=== PATIENT | male | born 1960 | race Caucasian/White ===

== ENCOUNTER 2020-09-21 06:31 | Inpatient (IN) | payer OTHER ==
[2020-09-19 10:25] LABS: BASOPHILS % (AUTO) 1 % (0-1); EOSINOPHILS % (AUTO) 2 % (1-7); LYMPHOCYTES % (AUTO) 37 % (22-44); MEAN CORPUSCULAR HEMOGLOBIN 31.7 pg (27.5-34.5); MEAN PLATELET VOLUME 7.1 fL (7.4-10.4); MONOCYTES % (AUTO) 10 % (2-9); NEUTROPHILS % (AUTO) 50 % (42-75); PLATELET COUNT 272 x10^3/uL (130-400); RED BLOOD COUNT 4.88 x10^6/uL (4.38-5.82); RED CELL DISTRIBUTION WIDTH 13.1 % (9.4-14.8)
[2020-09-19 10:36] LABS: ALANINE AMINOTRANSFERASE 22 U/L (12-78); ALBUMIN 3.7 g/dL (3.4-5.0); CREATININE 0.96 mg/dL (0.7-1.3)
[2020-09-19 10:39] LABS: ALKALINE PHOSPHATASE 71 U/L (45-117); BILIRUBIN,TOTAL 0.4 mg/dL (0.2-1.0); TOTAL PROTEIN 6.9 g/dL (6.4-8.2)
[2020-09-19 10:46] LABS: CHLORIDE 107 mmol/L (98-107)
[2020-09-19 10:47] LABS: ANION GAP 3 mmol/L (5-15)
[~2020-09-21] VITALS: Ht 172.7 cm; Wt 74.7 kg
[~2020-09-21 06:31] MED LIST: CALCIUM PO; LATA7.5D EACHEYE; MULT-658 PO
[2020-09-21] MEDS ORDERED: FENTANYL PF 250 MCG/5ML ONE (06:42)
[2020-09-21] MEDS ORDERED: MIDAZOLAM 1 MG/ML, 2ML ONE (06:42)
[2020-09-21] MEDS ORDERED: CEFOTETAN 2 GM ONE (06:43)
[2020-09-21] MEDS ORDERED: BUPIVACAINE/PF 0.25% ONE ×2 (06:51→06:52)
[2020-09-21] MEDS ORDERED: ROCURONIUM 10MG/ML,5ML ONE ×2 (06:52→09:06)
[2020-09-21] MEDS ORDERED: NEOSTIGMINE 1 MG/ML, 10ML ONE (06:52)
[2020-09-21] MEDS ORDERED: DEXAMETHASONE 4 MG/ML, 1ML ONE (06:52)
[2020-09-21] MEDS ORDERED: PROPOFOL 10 MG/ML, 20ML ONE (06:52)
[2020-09-21] MEDS ORDERED: GLYCOPYRROLATE 0.2MG/1ML, 5ML ONE (06:52)
[2020-09-21] MEDS ORDERED: ONDANSETRON 2MG/ML, 2ML ONE (06:52)
[2020-09-21] MEDS ORDERED: EPINEPHRINE 1 MG/ML, 1ML ONE (06:55)
[2020-09-21] MEDS ORDERED: BUPIVACAINE/PF 0.5% ONE (06:55)
[2020-09-21] MEDS ORDERED: INDOCYANINE GREEN 25 MG VIAL ONE (06:55)
[2020-09-21] MEDS ORDERED: CHLORHEXIDINE 15 ML UDC ONE (07:00)
[2020-09-21] MEDS ORDERED: LACTATED RINGERS 1,000 ML IV SCH (07:00)
[2020-09-21] MEDS ORDERED: CHLORHEXIDINE 15 ML UDC PO ONE (07:00)
[2020-09-21] MEDS ORDERED: LABETALOL 5MG/ML, 20ML IV PRN (07:30)
[2020-09-21] MEDS ORDERED: HALOPERIDOL 5 MG/ML IV PRN (07:30)
[2020-09-21] MEDS ORDERED: PROMETHAZINE 25 MG/ML, 1ML IVPush PRN (07:30)
[2020-09-21] MEDS ORDERED: ACETAMINOPHEN 325 MG TABLET PO PRN (07:30)
[2020-09-21] MEDS ORDERED: morphine SULFATE 10 MG/ML, 1ML IVPush PRN (07:30)
[2020-09-21] MEDS ORDERED: MEPERIDINE/PF 25MG/0.5ML IVPush PRN (07:30)
[2020-09-21] MEDS ORDERED: SUGAMMADEX 200 MG/2 ML IVPush ONE (09:25)
[2020-09-21] MEDS ORDERED: TRAZODONE 50MG TABLET PO PRN (10:00)
[2020-09-21] MEDS ORDERED: DIPHENHYDRAMINE 50 MG/ML, 1ML IVPush PRN (10:00)
[2020-09-21] MEDS ORDERED: DIPHENHYDRAMINE 25 MG CAPSULE PO PRN (10:00)
[2020-09-21] MEDS ORDERED: HALOPERIDOL 5 MG/ML IVPush PRN (10:00)
[2020-09-21] MEDS ORDERED: LORazepam 0.5MG TABLET PO PRN (10:00)
[2020-09-21] MEDS ORDERED: D5%-0.45NACL+KCL 20MEQ 1,000 ML IV SCH (10:00)
[2020-09-21] MEDS ORDERED: HYDROmorphone 1 MG/ML, 1ML INJ IVPush PRN (10:00)
[2020-09-21] MEDS ORDERED: LORazepam 2 MG/ML, 1ML IVPush PRN (10:00)
[2020-09-21] MEDS ORDERED: ONDANSETRON 2MG/ML, 2ML IVPush PRN (10:00)
[2020-09-21] MEDS ORDERED: DEXAMETHASONE 4 MG/ML, 1ML IVPush PRN (10:00)
[2020-09-21] MEDS ORDERED: CALCIUM CARBONATE 500 MG TAB.CHEW PO PRN (10:00)
[2020-09-21] MEDS: FENTANYL PF 100 MCG/2ML IV PRN ×2 (10:15→10:20)
[2020-09-21] MEDS ORDERED: FENTANYL PF 100 MCG/2ML ONE (10:17)
[2020-09-21] MEDS ORDERED: HYDROmorphone 1 MG/ML, 1ML INJ ONE ×2 (10:28→11:02)
[2020-09-21] MEDS: HYDROmorphone 1 MG/ML, 1ML INJ IVPush PRN ×4 (10:40→11:40)
[2020-09-21] MEDS ORDERED: LORazepam 2 MG/ML, 1ML ONE (10:44)
[2020-09-21] MEDS: hydrALAzine 20 MG/ML, 1ML IV PRN ×2 (11:00→11:40)
[2020-09-21] MEDS ORDERED: hydrALAzine 20 MG/ML, 1ML ONE (11:02)
[2020-09-21] MEDS: ACETAMINOPHEN 500 MG TABLET PO SCH ×3 (11:25→22:15)
[2020-09-21] MEDS ORDERED: PROMETHAZINE 25 MG/ML, 1ML ONE (11:38)
[2020-09-21] MEDS: GABAPENTIN 300 MG CAPSULE PO SCH ×2 (14:34→22:15)
[2020-09-21] MEDS: ACETAMINOPHEN 100 ML IVPB SCH ×2 (16:55→22:15)
[2020-09-21 17:00] VITALS: BP 159/83
[2020-09-21] MEDS ORDERED: LABETALOL 5MG/ML, 20ML IVPush PRN (17:00)
[2020-09-21 19:18] VITALS: BP 149/88
[2020-09-21] MEDS: OXYcodone IR 5MG TABLET PO PRN (19:49)
[2020-09-22 00:07] VITALS: BP 147/88
[2020-09-22 03:09] VITALS: BP 134/75
[2020-09-22 03:13] LABS: MEAN CORPUSCULAR HEMOGLOBIN 30.9 pg (27.5-34.5); MEAN CORPUSCULAR HGB CONC 34.8 g/dL (33.2-36.2); MEAN PLATELET VOLUME 7.2 fL (7.4-10.4); PLATELET COUNT 320 x10^3/uL (130-400); RED CELL DISTRIBUTION WIDTH 13.1 % (9.4-14.8)
[2020-09-22 03:26] LABS: ALBUMIN 3.4 g/dL (3.4-5.0); ANION GAP 3 mmol/L (5-15); CHLORIDE 103 mmol/L (98-107)
[2020-09-22 03:53] LABS: <RBC MORPHOLOGY> NORMAL; LYMPH#(MANUAL) 1.39 x10^3/uL (1-3.4); LYMPHS% (MANUAL) 8 % (22-44); MONOS#(MANUAL) 1.57 x10^3/uL (0.3-2.7); MONOS% (MANUAL) 9 % (2-9); REACTIVE LYMPHS # (MANUAL) 1.04 x10^3/uL (0-0); REACTIVE LYMPHS % (MANUAL) 6 % (0-0); SEGS% (MANUAL) 77 % (42-75)
[2020-09-22 03:54] LABS: <PLATELET ESTIMATE> ADEQUATE; <PLT MORPHOLOGY> NORMAL PLT MORPH
[2020-09-22] MEDS: ACETAMINOPHEN 100 ML IVPB SCH ×2 (04:12→09:28)
[2020-09-22] MEDS: OXYcodone IR 5MG TABLET PO PRN ×2 (04:13→20:38)
[2020-09-22] MEDS: ACETAMINOPHEN 500 MG TABLET PO SCH ×4 (04:13→22:16)
[2020-09-22] MEDS: MULTIVITAMIN 1 TABLET PO SCH (07:35)
[2020-09-22] MEDS: GABAPENTIN 300 MG CAPSULE PO SCH ×2 (07:35→20:39)
[2020-09-22] MEDS: TEMPLATE NON-FORMULARY MED. (Latanoprost/Pf (Latanoprost 0.005% Eye Drop) 1 DROP) EACHEYE SCH (07:36)
[2020-09-22 08:32] VITALS: BP 143/86
[2020-09-22] MEDS: ENOXAPARIN 40 MG/0.4 ML SQ SCH (09:27)
[2020-09-22 14:35] VITALS: BP 146/93
[2020-09-22 20:14] VITALS: BP 132/85
[2020-09-23 01:45] VITALS: BP 105/70
[2020-09-23 03:27] LABS: BASOPHILS % (AUTO) 0 % (0-1); EOSINOPHILS % (AUTO) 1 % (1-7); LYMPHOCYTES % (AUTO) 23 % (22-44); MEAN CORPUSCULAR HEMOGLOBIN 31.2 pg (27.5-34.5); MEAN CORPUSCULAR HGB CONC 35.2 g/dL (33.2-36.2); MEAN PLATELET VOLUME 7.3 fL (7.4-10.4); MONOCYTES % (AUTO) 10 % (2-9); NEUTROPHILS % (AUTO) 65 % (42-75); PLATELET COUNT 242 x10^3/uL (130-400); RED BLOOD COUNT 4.56 x10^6/uL (4.38-5.82)
[2020-09-23 03:35] LABS: ALBUMIN 3.1 g/dL (3.4-5.0); ANION GAP 4 mmol/L (5-15); CALCIUM 8.9 mg/dL (8.5-10.1); CHLORIDE 106 mmol/L (98-107); CREATININE 0.95 mg/dL (0.7-1.3)
[2020-09-23] MEDS: ACETAMINOPHEN 500 MG TABLET PO SCH ×2 (04:31→10:05)
[2020-09-23] MEDS ORDERED: OXYC1TAB14 PO (07:15)
[2020-09-23] MEDS: TEMPLATE NON-FORMULARY MED. (Latanoprost/Pf (Latanoprost 0.005% Eye Drop) 1 DROP) EACHEYE SCH (07:26)
[2020-09-23 08:05] VITALS: BP 130/81
[2020-09-23] MEDS: GABAPENTIN 300 MG CAPSULE PO SCH (08:36)
[2020-09-23] MEDS: MULTIVITAMIN 1 TABLET PO SCH (08:36)
[2020-09-23] MEDS: ENOXAPARIN 40 MG/0.4 ML SQ SCH (08:36)
[2020-09-23 09:59] VITALS: BP 116/73
[2020-09-23 10:32] VITALS: BP 111/72
== END 2020-09-23 10:25 | disposition home or self-care (01) | DRG 331 ==
LOC: ORIP 06:31 → 4NE 12:23 → DCLOUNGE 09-23 10:15
PROVIDERS: ADMIT Surgery; ATTEND Surgery
PROC: 8E0W4CZ Robotic Assisted Procedure of Trunk Region, Percutaneous Endoscopic Approach (ICD-10-PCS; 2020-09-21)
PROC: 0DBN4ZZ Excision of Sigmoid Colon, Percutaneous Endoscopic Approach (ICD-10-PCS; principal; 2020-09-21 07:30)
DX: K57.90 Diverticulosis of intestine, part unspecified, without perforation or abscess without bleeding (principal); K57.92 Diverticulitis of intestine, part unspecified, without perforation or abscess without bleeding
CPT/HCPCS: 36415; 80048; 80053; 82040; 85025; 86850; 86900; 88307; 93005; G0378; J0131; J0171; J1100; J1170; J1650; J2250; J2405; J2550; J2704; J2710; J3010; U0005; J0360; J2060; J7120; U0003